=== PATIENT | male | born 1940 | race Caucasian/White ===

== ENCOUNTER 2019-06-08 09:04 | Inpatient (IN) ==
[2019-06-08] MEDS ORDERED: ALBUTEROL/IPRATROPIUM 3 ML NEB RESP TX PRN (11:28)
[2019-06-08] MEDS ORDERED: DEXTROSE 50% 25 GM/50 ML VIAL IV PRN (11:30)
[2019-06-08] MEDS ORDERED: GLUCAGON 1 MG VIAL IM PRN (11:30)
[2019-06-08 11:48] LABS: ABG Base Excess -1.3 MMOL/L (-2.5-2.5); ABG HCO3 23.3 MMOL/L (20-26); ABG Oxygen Saturation 98.5 % (95-100); ABG PCO2 45.2 MM HG (35-48); ABG PH 7.343 (7.35-7.45); ABG TCO2 22.6 MMOL/L (23-27); Allen Test Positive; Pt O2 Delivery Device Ventilator
[2019-06-08] MEDS: PROPOFOL 1,000 MG/100 ML BOTTLE IV SCH (11:51)
[2019-06-08] MEDS: SODIUM CHLORIDE 0.9% 1,000 ML IV SCH ×2 (11:52→22:53)
[2019-06-08] MEDS: ALBUTEROL/IPRATROPIUM 3 ML NEB RESP TX SCH ×2 (13:20→19:30)
[2019-06-08] MEDS: INSULIN GLARGINE 100 UNIT/ML SUBCUT SCH (13:29)
[2019-06-08] MEDS: methylPREDNISolone SOD SUC 40 MG/1 ML VIAL IV SCH ×2 (13:29→23:18)
[2019-06-08] MEDS: MEROPENEM 500 MG in SODIUM CHLORIDE 0.9% 100 ML IV SCH ×2 (13:30→20:23)
[2019-06-08] MEDS: ENOXAPARIN 30 MG/0.3 ML SYRINGE SUBCUT SCH (13:30)
[2019-06-08] MEDS ORDERED: INSULIN LISPRO 100 UNIT/ML SUBCUT SCH (14:00)
[2019-06-08 15:27] LABS: Troponin I 0.067 NG/ML (0.00-0.045)
[2019-06-08] MEDS: INSULIN LISPRO 100 UNIT/ML SUBCUT SCH ×3 (16:55→21:23)
[2019-06-08 18:28] LABS: Troponin I 0.071 NG/ML (0.00-0.045)
[2019-06-08 20:55] LABS: Troponin I 0.063 NG/ML (0.00-0.045)
[2019-06-08] MEDS: carvediloL 3.125 MG TABLET PER TUBE SCH (21:30)
[2019-06-08] MEDS: ATORVASTATIN 40 MG TABLET PER TUBE SCH (21:31)
[2019-06-08] MEDS: CILOSTAZOL 50 MG TABLET PER TUBE SCH (21:31)
[2019-06-09] MEDS: ALBUTEROL/IPRATROPIUM 3 ML NEB RESP TX SCH ×4 (00:04→19:33)
[2019-06-09] MEDS: INSULIN LISPRO 100 UNIT/ML SUBCUT SCH ×7 (01:29→20:13)
[2019-06-09] MEDS: PROPOFOL 1,000 MG/100 ML BOTTLE IV SCH ×3 (02:19→21:48)
[2019-06-09] MEDS: MEROPENEM 500 MG in SODIUM CHLORIDE 0.9% 100 ML IV SCH ×3 (04:32→21:50)
[2019-06-09 04:58] LABS: Allen Test Positive; Pt O2 Delivery Device Ventilator
[2019-06-09 04:59] LABS: ABG Base Excess -1.5 MMOL/L (-2.5-2.5); ABG HCO3 23.1 MMOL/L (20-26); ABG Oxygen Saturation 98.2 % (95-100); ABG PCO2 27.2 MM HG (35-48); ABG PH 7.493 (7.35-7.45); ABG TCO2 19.2 MMOL/L (23-27)
[2019-06-09 05:42] LABS: Basophils % 0.1 % (0.0-0.8); Hematocrit 29.3 VOL% (42.0-52.0); Hemoglobin 9.1 GM/DL (14.0-18.0); Immature Granulocytes % 0.4 %; Immature Granulocytes Absolute 0.03 #; Lymphocytes # 0.5 10*3/uL (1.4-4.0); Lymphocytes % 6.5 % (21.2-54.2); Mean Corpuscular HGB Conc 31.1 GM/DL (32-36); Mean Platelet Volume 11.9 FL (9.6-12.0); Monocytes % 3.6 % (1.7-12.7); Neutrophils % 89.4 % (38.7-73.9); Platelet Count 253 T/CUMM (130-400); Red Blood Count 3.33 MC/CUMM (3.8-5.5); Red Cell Distribution Width 15.8 % (9.3-17.3)
[2019-06-09 05:52] LABS: Calcium 9.2 MG/DL (8.5-10.1); Osmolality,Calculated 303.1 MOS/KG (273-304)
[2019-06-09] MEDS: CLOPIDOGREL 75 MG TABLET PER TUBE SCH (09:40)
[2019-06-09] MEDS: carvediloL 3.125 MG TABLET PER TUBE SCH ×2 (09:40→21:08)
[2019-06-09] MEDS: INSULIN GLARGINE 100 UNIT/ML SUBCUT SCH (09:40)
[2019-06-09] MEDS: FUROSEMIDE 40 MG/4 ML VIAL IV SCH (09:41)
[2019-06-09] MEDS: CILOSTAZOL 50 MG TABLET PER TUBE SCH ×2 (09:49→21:08)
[2019-06-09] MEDS ORDERED: INFLUENZA VIRUS VACCINE 0.5 ML SYRINGE IM ONE (11:40)
[2019-06-09] MEDS: methylPREDNISolone SOD SUC 40 MG/1 ML VIAL IV SCH ×2 (12:09→23:51)
[2019-06-09] MEDS: ENOXAPARIN 30 MG/0.3 ML SYRINGE SUBCUT SCH (12:12)
[2019-06-09] MEDS: SODIUM CHLORIDE 0.9% 1,000 ML IV SCH (15:09)
[2019-06-09] MEDS: ATORVASTATIN 40 MG TABLET PER TUBE SCH (21:08)
[2019-06-10] MEDS: INSULIN LISPRO 100 UNIT/ML SUBCUT SCH ×5 (00:03→16:18)
[2019-06-10] MEDS: ALBUTEROL/IPRATROPIUM 3 ML NEB RESP TX SCH ×4 (02:35→18:58)
[2019-06-10 04:15] LABS: ABG HCO3 23.6 MMOL/L (20-26); ABG Oxygen Saturation 97.1 % (95-100); ABG PCO2 33.2 MM HG (35-48); ABG PH 7.441 (7.35-7.45); ABG PO2 88.3 MM HG (80-95); ABG TCO2 20.7 MMOL/L (23-27); Allen Test Positive; Pt O2 Delivery Device Ventilator
[2019-06-10 04:19] LABS: Basophils % 0.1 % (0.0-0.8); Hematocrit 30.3 VOL% (42.0-52.0); Hemoglobin 9.1 GM/DL (14.0-18.0); Immature Granulocytes % 0.5 %; Immature Granulocytes Absolute 0.05 #; Lymphocytes # 0.5 10*3/uL (1.4-4.0); Lymphocytes % 4.9 % (21.2-54.2); Mean Corpuscular Volume 89.9 FL (87-102); Mean Platelet Volume 11.8 FL (9.6-12.0); Neutrophils % 90.5 % (38.7-73.9); Platelet Count 283 T/CUMM (130-400); Red Blood Count 3.37 MC/CUMM (3.8-5.5); Red Cell Distribution Width 15.8 % (9.3-17.3); White Blood Count 9.9 T/CUMM (4-12)
[2019-06-10 04:26] LABS: Calcium 8.8 MG/DL (8.5-10.1); Osmolality,Calculated 294.8 MOS/KG (273-304)
[2019-06-10 04:45] LABS: Eosinophils 1 % (0-10); Hypochromasia 1+; Lymphocytes 1 % (20-55); Platelet Estimate Adequate; Segmented Neutrophils 94 % (50-85); Total Cells Counted 100
[2019-06-10] MEDS: MEROPENEM 500 MG in SODIUM CHLORIDE 0.9% 100 ML IV SCH ×3 (04:52→20:52)
[2019-06-10] MEDS: PROPOFOL 1,000 MG/100 ML BOTTLE IV SCH ×2 (06:36→16:44)
[2019-06-10] MEDS: SODIUM CHLORIDE 0.9% 1,000 ML IV SCH (06:36)
[2019-06-10] MEDS ORDERED: MAGNESIUM SULF RIDER 2 GM in PREMIX 1 EACH IV ONE (08:08)
[2019-06-10] MEDS: INSULIN GLARGINE 100 UNIT/ML SUBCUT SCH (09:07)
[2019-06-10] MEDS: carvediloL 3.125 MG TABLET PER TUBE SCH ×2 (09:09→20:52)
[2019-06-10] MEDS: CILOSTAZOL 50 MG TABLET PER TUBE SCH ×2 (09:09→20:52)
[2019-06-10] MEDS: CLOPIDOGREL 75 MG TABLET PER TUBE SCH (09:09)
[2019-06-10] MEDS: FUROSEMIDE 40 MG/4 ML VIAL IV SCH (09:12)
[2019-06-10] MEDS ORDERED: DEXTROSE 50% 25 GM/50 ML VIAL IV PRN (10:29)
[2019-06-10] MEDS ORDERED: GLUCAGON 1 MG VIAL IM PRN (10:29)
[2019-06-10] MEDS: methylPREDNISolone SOD SUC 40 MG/1 ML VIAL IV SCH ×2 (12:16→23:43)
[2019-06-10] MEDS: ENOXAPARIN 40 MG/0.4 ML SYRINGE SUBCUT SCH (12:16)
[2019-06-10] MEDS: ATORVASTATIN 40 MG TABLET PER TUBE SCH (20:52)
[2019-06-10] MEDS ORDERED: SODIUM CHLORIDE 0.9% 250 ML IV ONE (23:30)
[2019-06-10] MEDS ORDERED: NOREPINEPHRINE 8 MG in SODIUM CHLORIDE 0.9% 242 ML IV PRN (23:30)
[2019-06-11] MEDS: ALBUTEROL/IPRATROPIUM 3 ML NEB RESP TX SCH ×4 (00:33→19:08)
[2019-06-11 03:18] LABS: ABG Base Excess -0.9 MMOL/L (-2.5-2.5); ABG HCO3 23.6 MMOL/L (20-26); ABG Oxygen Saturation 95.8 % (95-100); ABG PCO2 33.3 MM HG (35-48); ABG PH 7.441 (7.35-7.45); ABG PO2 79.6 MM HG (80-95); ABG TCO2 20.5 MMOL/L (23-27); Allen Test Positive; Pt O2 Delivery Device Ventilator
[2019-06-11 04:25] LABS: Basophils % 0.1 % (0.0-0.8); Hematocrit 28.8 VOL% (42.0-52.0); Immature Granulocytes % 0.6 %; Immature Granulocytes Absolute 0.06 #; Lymphocytes # 0.4 10*3/uL (1.4-4.0); Lymphocytes % 3.9 % (21.2-54.2); Mean Corpuscular HGB Conc 31.3 GM/DL (32-36); Mean Corpuscular Volume 87.8 FL (87-102); Mean Platelet Volume 11.8 FL (9.6-12.0); Monocytes % 5.6 % (1.7-12.7); Neutrophils % 89.8 % (38.7-73.9); Platelet Count 265 T/CUMM (130-400); Red Blood Count 3.28 MC/CUMM (3.8-5.5); Red Cell Distribution Width 15.9 % (9.3-17.3)
[2019-06-11] MEDS: MEROPENEM 500 MG in SODIUM CHLORIDE 0.9% 100 ML IV SCH ×3 (04:39→20:14)
[2019-06-11] MEDS: PROPOFOL 1,000 MG/100 ML BOTTLE IV SCH ×2 (04:39→12:30)
[2019-06-11 04:47] LABS: Hypochromasia 1+; Lymphocytes 3 % (20-55); Ovalocytes Slight; Platelet Estimate Adequate; Segmented Neutrophils 96 % (50-85); Total Cells Counted 100
[2019-06-11 04:48] LABS: Calcium 8.8 MG/DL (8.5-10.1); Osmolality,Calculated 307.3 MOS/KG (273-304)
[2019-06-11] MEDS: INSULIN LISPRO 100 UNIT/ML SUBCUT SCH ×4 (05:24→18:06)
[2019-06-11] MEDS: POTASSIUM CHLORIDE 20 MEQ/15 ML UDCUP PER TUBE PRN ×3 (05:41→09:40)
[2019-06-11] MEDS: CILOSTAZOL 50 MG TABLET PER TUBE SCH ×2 (09:40→20:14)
[2019-06-11] MEDS: CLOPIDOGREL 75 MG TABLET PER TUBE SCH (09:40)
[2019-06-11] MEDS: carvediloL 3.125 MG TABLET PER TUBE SCH ×2 (09:40→20:14)
[2019-06-11] MEDS: FUROSEMIDE 40 MG/4 ML VIAL IV SCH (09:41)
[2019-06-11] MEDS: INSULIN GLARGINE 100 UNIT/ML SUBCUT SCH (09:41)
[2019-06-11] MEDS ORDERED: FUROSEMIDE 40 MG/4 ML VIAL IV ONE (11:34)
[2019-06-11] MEDS: methylPREDNISolone SOD SUC 40 MG/1 ML VIAL IV SCH (11:52)
[2019-06-11] MEDS: ENOXAPARIN 40 MG/0.4 ML SYRINGE SUBCUT SCH (11:55)
[2019-06-11] MEDS: ATORVASTATIN 40 MG TABLET PER TUBE SCH (20:14)
[2019-06-12] MEDS: INSULIN LISPRO 100 UNIT/ML SUBCUT SCH ×5 (00:47→23:46)
[2019-06-12] MEDS: methylPREDNISolone SOD SUC 40 MG/1 ML VIAL IV SCH ×3 (00:47→22:42)
[2019-06-12] MEDS: ALBUTEROL/IPRATROPIUM 3 ML NEB RESP TX SCH ×4 (01:59→18:35)
[2019-06-12 04:01] LABS: ABG Base Excess 0.6 MMOL/L (-2.5-2.5); ABG HCO3 24.7 MMOL/L (20-26); ABG Oxygen Saturation 84.9 % (95-100); ABG PCO2 36.9 MM HG (35-48); ABG PH 7.432 (7.35-7.45); ABG PO2 52.6 MM HG (80-95); ABG TCO2 22.5 MMOL/L (23-27); Allen Test Positive
[2019-06-12 04:22] LABS: Basophils % 0.1 % (0.0-0.8); Hemoglobin 9.4 GM/DL (14.0-18.0); Immature Granulocytes % 0.4 %; Immature Granulocytes Absolute 0.04 #; Lymphocytes # 0.5 10*3/uL (1.4-4.0); Lymphocytes % 5.4 % (21.2-54.2); Mean Corpuscular HGB Conc 30.3 GM/DL (32-36); Mean Corpuscular Volume 88.1 FL (87-102); Mean Platelet Volume 11.2 FL (9.6-12.0); Monocytes % 4.6 % (1.7-12.7); Neutrophils % 89.5 % (38.7-73.9); Platelet Count 285 T/CUMM (130-400); Red Blood Count 3.52 MC/CUMM (3.8-5.5); Red Cell Distribution Width 15.7 % (9.3-17.3)
[2019-06-12 04:44] LABS: Calcium 8.6 MG/DL (8.5-10.1); Osmolality,Calculated 301.7 MOS/KG (273-304)
[2019-06-12] MEDS: MEROPENEM 500 MG in SODIUM CHLORIDE 0.9% 100 ML IV SCH (05:00)
[2019-06-12] MEDS ORDERED: DEXTROSE 50% 25 GM/50 ML VIAL IV PRN (08:55)
[2019-06-12] MEDS: INSULIN GLARGINE 100 UNIT/ML SUBCUT SCH (09:49)
[2019-06-12] MEDS: carvediloL 3.125 MG TABLET PER TUBE SCH ×2 (09:49→20:37)
[2019-06-12] MEDS: FUROSEMIDE 40 MG/4 ML VIAL IV SCH (09:49)
[2019-06-12] MEDS: CILOSTAZOL 50 MG TABLET PER TUBE SCH ×2 (09:50→20:36)
[2019-06-12] MEDS: CLOPIDOGREL 75 MG TABLET PER TUBE SCH (09:50)
[2019-06-12] MEDS: ENOXAPARIN 40 MG/0.4 ML SYRINGE SUBCUT SCH (12:34)
[2019-06-12] MEDS: ATORVASTATIN 40 MG TABLET PER TUBE SCH (20:36)
[2019-06-12] MEDS: cephALEXin 500 MG CAPSULE PO SCH (20:37)
[2019-06-12] MEDS: MORPHINE 4 MG/1 ML VIAL IV PRN (20:42)
[2019-06-13 05:20] LABS: Hematocrit 30.8 VOL% (42.0-52.0); Hemoglobin 9.4 GM/DL (14.0-18.0); Immature Granulocytes % 0.6 %; Immature Granulocytes Absolute 0.05 #; Lymphocytes # 0.5 10*3/uL (1.4-4.0); Mean Corpuscular HGB Conc 30.5 GM/DL (32-36); Mean Corpuscular Volume 88.5 FL (87-102); Monocytes % 4.4 % (1.7-12.7); Platelet Count 284 T/CUMM (130-400); Red Blood Count 3.48 MC/CUMM (3.8-5.5); Red Cell Distribution Width 15.4 % (9.3-17.3)
[2019-06-13 05:29] LABS: Calcium 8.7 MG/DL (8.5-10.1); Osmolality,Calculated 301.8 MOS/KG (273-304)
[2019-06-13] MEDS: INSULIN LISPRO 100 UNIT/ML SUBCUT SCH ×3 (05:42→18:08)
[2019-06-13] MEDS: ALBUTEROL/IPRATROPIUM 3 ML NEB RESP TX SCH ×4 (07:57→19:18)
[2019-06-13] MEDS: INSULIN GLARGINE 100 UNIT/ML SUBCUT SCH (08:22)
[2019-06-13] MEDS: CILOSTAZOL 50 MG TABLET PER TUBE SCH ×2 (08:22→20:09)
[2019-06-13] MEDS: carvediloL 3.125 MG TABLET PER TUBE SCH ×2 (08:23→20:10)
[2019-06-13] MEDS: CLOPIDOGREL 75 MG TABLET PER TUBE SCH (08:23)
[2019-06-13] MEDS: FUROSEMIDE 40 MG/4 ML VIAL IV SCH (08:23)
[2019-06-13] MEDS: cephALEXin 500 MG CAPSULE PO SCH ×2 (08:38→20:09)
[2019-06-13] MEDS ORDERED: NICOTINE 21 MG/24 HR PATCH TRANSDERM PRN (10:42)
[2019-06-13] MEDS ORDERED: ENOXAPARIN 30 MG/0.3 ML SYRINGE SUBCUT SCH (11:00)
[2019-06-13] MEDS: methylPREDNISolone SOD SUC 40 MG/1 ML VIAL IV SCH ×2 (11:43→22:44)
[2019-06-13] MEDS: MORPHINE 4 MG/1 ML VIAL IV PRN (20:08)
[2019-06-13] MEDS: ATORVASTATIN 40 MG TABLET PER TUBE SCH (20:10)
[2019-06-14] MEDS: ALBUTEROL/IPRATROPIUM 3 ML NEB RESP TX SCH ×2 (00:04→09:05)
[2019-06-14] MEDS: INSULIN LISPRO 100 UNIT/ML SUBCUT SCH ×2 (00:11→06:37)
[2019-06-14 06:26] LABS: Basophils % 0.1 % (0.0-0.8); Hematocrit 33.9 VOL% (42.0-52.0); Hemoglobin 10.4 GM/DL (14.0-18.0); Immature Granulocytes % 0.6 %; Immature Granulocytes Absolute 0.05 #; Lymphocytes # 0.4 10*3/uL (1.4-4.0); Lymphocytes % 5.2 % (21.2-54.2); Mean Corpuscular HGB Conc 30.7 GM/DL (32-36); Mean Corpuscular Volume 87.1 FL (87-102); Mean Platelet Volume 12.1 FL (9.6-12.0); Neutrophils % 90.1 % (38.7-73.9); Platelet Count 291 T/CUMM (130-400); Red Blood Count 3.89 MC/CUMM (3.8-5.5); Red Cell Distribution Width 15.3 % (9.3-17.3)
[2019-06-14 06:49] LABS: Calcium 9.4 MG/DL (8.5-10.1); Osmolality,Calculated 307.6 MOS/KG (273-304)
[2019-06-14 08:22] VITALS: BP 144/68
[2019-06-14] MEDS: cephALEXin 500 MG CAPSULE PO SCH (09:12)
[2019-06-14] MEDS: CLOPIDOGREL 75 MG TABLET PER TUBE SCH (09:12)
[2019-06-14] MEDS: CILOSTAZOL 50 MG TABLET PER TUBE SCH (09:12)
[2019-06-14] MEDS: carvediloL 3.125 MG TABLET PER TUBE SCH (09:12)
[2019-06-14] MEDS: INSULIN GLARGINE 100 UNIT/ML SUBCUT SCH (09:13)
[2019-06-14] MEDS: FUROSEMIDE 40 MG/4 ML VIAL IV SCH (09:14)
== END 2019-06-14 11:02 | disposition home health service (06) | DRG 208 ==
LOC: N.ICU 10:13 → SUATTDRO 10:13 → N.5E 06-12 16:25
PROVIDERS: ADMIT Internal Medicine; ATTEND Internal Medicine

== ENCOUNTER 2019-06-15 12:40 | Inpatient (IN) ==
[2019-06-15 14:06] LABS: Basophils % 0.1 % (0.0-0.8); Eosinophils # 0.2 10*3/uL (0.0-0.87); Eosinophils % 1.9 % (0.00-10.9); Hematocrit 33.3 VOL% (42.0-52.0); Hemoglobin 10.2 GM/DL (14.0-18.0); Immature Granulocytes % 0.9 %; Immature Granulocytes Absolute 0.09 #; Lymphocytes # 0.6 10*3/uL (1.4-4.0); Lymphocytes % 6.4 % (21.2-54.2); Mean Corpuscular HGB Conc 30.6 GM/DL (32-36); Mean Corpuscular Volume 87.6 FL (87-102); Mean Platelet Volume 12.2 FL (9.6-12.0); Monocytes % 7.4 % (1.7-12.7); Neutrophils % 83.3 % (38.7-73.9); Platelet Count 273 T/CUMM (130-400); Red Cell Distribution Width 15.5 % (9.3-17.3); White Blood Count 9.6 T/CUMM (4-12)
[2019-06-15 14:12] LABS: INR 1.1; PT Patient Result 11.4 SECS (9.6-12.2)
[2019-06-15] MEDS ORDERED: FUROSEMIDE 100 MG/10 ML VIAL IV STA (14:17)
[2019-06-15] MEDS ORDERED: FUROSEMIDE 100 MG/10 ML VIAL ONE (14:17)
[2019-06-15 14:20] LABS: Albumin 2.9 G/DL (3.4-5.0); Bilirubin,Total 0.5 MG/DL (0.2-1.0); Calcium 8.9 MG/DL (8.5-10.1); Osmolality,Calculated 309.4 MOS/KG (273-304)
[2019-06-15] MEDS ORDERED: MAGNESIUM SULF RIDER 4 GM in PREMIX 1 EACH IV PRN (14:41)
[2019-06-15] MEDS ORDERED: MAGNESIUM SULF RIDER 2 GM in PREMIX 1 EACH IV PRN (14:41)
[2019-06-15] MEDS ORDERED: NITROGLYCERIN SL 0.4 MG TABLET SL PRN (14:44)
[2019-06-15] MEDS ORDERED: NICOTINE 21 MG/24 HR PATCH TRANSDERM PRN (14:44)
[2019-06-15] MEDS ORDERED: HEPARIN 5,000 UNIT/1 ML VIAL SUBCUT SCH (16:30)
[2019-06-15] MEDS: FUROSEMIDE 40 MG/4 ML VIAL IV SCH (17:18)
[2019-06-15] MEDS: ALBUTEROL/IPRATROPIUM 3 ML NEB RESP TX SCH (19:56)
[2019-06-15 20:26] LABS: CKMB % 6.6 %
[2019-06-15 20:29] LABS: Troponin I 3.79 NG/ML (0.00-0.045)
[2019-06-15] MEDS: CILOSTAZOL 50 MG TABLET PO SCH (20:51)
[2019-06-15] MEDS: glipiZIDE 10 MG TABLET PO SCH (20:51)
[2019-06-15] MEDS: carvediloL 3.125 MG TABLET PO SCH (20:51)
[2019-06-15] MEDS: ENOXAPARIN 80 MG/0.8 ML SYRINGE SUBCUT SCH (20:51)
[2019-06-15] MEDS: ATORVASTATIN 80 MG TABLET PO SCH (20:51)
[2019-06-15] MEDS: NITROGLYCERIN 2% OINT 1 INCH/GM PACK TOP SCH (20:52)
[2019-06-15] MEDS: methylPREDNISolone SOD SUC 40 MG/1 ML VIAL IV SCH (22:30)
[2019-06-16] MEDS: ALBUTEROL/IPRATROPIUM 3 ML NEB RESP TX SCH ×4 (00:18→20:36)
[2019-06-16] MEDS: methylPREDNISolone SOD SUC 40 MG/1 ML VIAL IV SCH ×3 (06:00→21:18)
[2019-06-16] MEDS ORDERED: BUPIVACAINE MPF 0.25% 30 ML VIAL ONE (07:48)
[2019-06-16] MEDS ORDERED: LIDOCAINE 1%/EPI INJ 20 ML VIAL ONE (07:48)
[2019-06-16] MEDS: ENOXAPARIN 80 MG/0.8 ML SYRINGE SUBCUT SCH ×2 (08:26→21:17)
[2019-06-16] MEDS: NITROGLYCERIN 2% OINT 1 INCH/GM PACK TOP SCH (08:26)
[2019-06-16] MEDS: FUROSEMIDE 40 MG/4 ML VIAL IV SCH (08:27)
[2019-06-16] MEDS: ASPIRIN CHEW 81 MG TABLET PO SCH (08:28)
[2019-06-16] MEDS: FENOFIBRATE 145 MG TABLET PO SCH (08:28)
[2019-06-16] MEDS: glipiZIDE 10 MG TABLET PO SCH ×2 (08:28→21:17)
[2019-06-16] MEDS: CLOPIDOGREL 75 MG TABLET PO SCH (08:28)
[2019-06-16] MEDS: CILOSTAZOL 50 MG TABLET PO SCH ×2 (08:28→21:17)
[2019-06-16] MEDS: PANTOPRAZOLE 40 MG TABLET PO SCH (08:28)
[2019-06-16] MEDS: carvediloL 3.125 MG TABLET PO SCH (08:28)
[2019-06-16] MEDS ORDERED: LISINOPRIL 2.5 MG TABLET PO SCH (09:00)
[2019-06-16 10:44] LABS: Basophils % 0.1 % (0.0-0.8); Eosinophils # 0.2 10*3/uL (0.0-0.87); Eosinophils % 2.1 % (0.00-10.9); Hematocrit 30.6 VOL% (42.0-52.0); Hemoglobin 9.5 GM/DL (14.0-18.0); Immature Granulocytes % 0.8 %; Immature Granulocytes Absolute 0.06 #; Lymphocytes # 0.6 10*3/uL (1.4-4.0); Lymphocytes % 7.5 % (21.2-54.2); Mean Corpuscular Volume 87.9 FL (87-102); Mean Platelet Volume 12.4 FL (9.6-12.0); Neutrophils % 86.5 % (38.7-73.9); Platelet Count 248 T/CUMM (130-400); Red Blood Count 3.48 MC/CUMM (3.8-5.5); Red Cell Distribution Width 15.6 % (9.3-17.3); White Blood Count 7.6 T/CUMM (4-12)
[2019-06-16 10:53] LABS: Calcium 8.7 MG/DL (8.5-10.1); Osmolality,Calculated 304.8 MOS/KG (273-304)
[2019-06-16] MEDS ORDERED: DIAZEPAM 5 MG TABLET PO ONE (10:54)
[2019-06-16] MEDS ORDERED: diphenhydrAMINE CAP 25 MG CAPSULE PO ONE (10:54)
[2019-06-16] MEDS ORDERED: LIDOCAINE 1% 20 ML VIAL ONE (11:01)
[2019-06-16] MEDS: SODIUM CHLORIDE 0.45% 1,000 ML IV SCH (11:12)
[2019-06-16] MEDS ORDERED: MIDAZOLAM 2 MG/2 ML VIAL ONE (11:22)
[2019-06-16] MEDS ORDERED: fentaNYL 100 MCG/2 ML VIAL ONE (11:22)
[2019-06-16] MEDS ORDERED: GLUCAGON 1 MG VIAL IM PRN (11:45)
[2019-06-16] MEDS ORDERED: DEXTROSE 10% 250 ML BAG IV PRN (11:45)
[2019-06-16] MEDS: INSULIN REGULAR 100 UNIT/ML SUBCUT SCH ×2 (16:13→21:16)
[2019-06-16] MEDS: carvediloL 6.25 MG TABLET PO SCH (21:17)
[2019-06-16] MEDS: ATORVASTATIN 80 MG TABLET PO SCH (21:17)
[2019-06-17] MEDS: ALBUTEROL/IPRATROPIUM 3 ML NEB RESP TX SCH ×4 (00:52→20:40)
[2019-06-17 05:10] LABS: Basophils % 0.1 % (0.0-0.8); Hematocrit 28.7 VOL% (42.0-52.0); Hemoglobin 9.3 GM/DL (14.0-18.0); Immature Granulocytes % 0.7 %; Immature Granulocytes Absolute 0.06 #; Lymphocytes # 0.5 10*3/uL (1.4-4.0); Lymphocytes % 5.2 % (21.2-54.2); Mean Corpuscular HGB Conc 32.4 GM/DL (32-36); Mean Corpuscular Volume 85.7 FL (87-102); Mean Platelet Volume 12.3 FL (9.6-12.0); Monocytes % 3.8 % (1.7-12.7); Neutrophils % 90.2 % (38.7-73.9); Platelet Count 219 T/CUMM (130-400); Red Blood Count 3.35 MC/CUMM (3.8-5.5); Red Cell Distribution Width 15.3 % (9.3-17.3); White Blood Count 8.9 T/CUMM (4-12)
[2019-06-17 05:25] LABS: Alanine Aminotransferase 70 U/L (16-61); Albumin 2.7 G/DL (3.4-5.0); Alkaline Phosphatase 76 U/L (45-117); Aspartate Amino Transferase 23 U/L (0-37); Bilirubin,Total < 0.39 MG/DL (0.2-1.0); Total Protein 5.8 G/DL (6.4-8.3)
[2019-06-17 05:26] LABS: Risk Ratio 2.33; VLDL CHOLESTEROL 17.2 MG/DL
[2019-06-17 05:27] LABS: Bilirubin,Indirect 0.2 MG/DL (0.0-1.0)
[2019-06-17 05:29] LABS: Calcium 8.9 MG/DL (8.5-10.1); Osmolality,Calculated 309.1 MOS/KG (273-304)
[2019-06-17] MEDS: methylPREDNISolone SOD SUC 40 MG/1 ML VIAL IV SCH (06:08)
[2019-06-17] MEDS: SODIUM CHLORIDE 0.45% 1,000 ML IV SCH ×3 (07:29→18:34)
[2019-06-17] MEDS: FENOFIBRATE 145 MG TABLET PO SCH (09:49)
[2019-06-17] MEDS: ISOSORBIDE MONONITRATE 30 MG TABLET PO SCH (09:49)
[2019-06-17] MEDS: CLOPIDOGREL 75 MG TABLET PO SCH (09:49)
[2019-06-17] MEDS: PANTOPRAZOLE 40 MG TABLET PO SCH (09:49)
[2019-06-17] MEDS: ASPIRIN CHEW 81 MG TABLET PO SCH (09:50)
[2019-06-17] MEDS: ENOXAPARIN 80 MG/0.8 ML SYRINGE SUBCUT SCH ×2 (09:50→21:09)
[2019-06-17] MEDS: CILOSTAZOL 50 MG TABLET PO SCH ×2 (09:50→21:08)
[2019-06-17] MEDS: glipiZIDE 10 MG TABLET PO SCH ×2 (09:50→16:16)
[2019-06-17] MEDS: carvediloL 6.25 MG TABLET PO SCH ×2 (09:50→16:16)
[2019-06-17] MEDS: INSULIN REGULAR 100 UNIT/ML SUBCUT SCH ×4 (09:51→21:09)
[2019-06-17] MEDS: ATORVASTATIN 80 MG TABLET PO SCH (21:08)
[2019-06-17] MEDS: POTASSIUM CHLORIDE 10 MEQ TABLET PO SCH (21:09)
[2019-06-18] MEDS: ALBUTEROL/IPRATROPIUM 3 ML NEB RESP TX SCH ×2 (01:30→07:40)
[2019-06-18] MEDS: dilTIAZem Drip 125 MG/125 ML PREMIX IV SCH (02:14)
[2019-06-18 04:39] LABS: Basophils % 0.1 % (0.0-0.8); Eosinophils % 0.2 % (0.00-10.9); Hemoglobin 9.4 GM/DL (14.0-18.0); Immature Granulocytes % 0.8 %; Lymphocytes # 0.7 10*3/uL (1.4-4.0); Mean Corpuscular HGB Conc 31.3 GM/DL (32-36); Mean Platelet Volume 12.9 FL (9.6-12.0); Neutrophils % 85.9 % (38.7-73.9); Platelet Count 222 T/CUMM (130-400); Red Blood Count 3.49 MC/CUMM (3.8-5.5); Red Cell Distribution Width 15.4 % (9.3-17.3); White Blood Count 13.3 T/CUMM (4-12)
[2019-06-18 05:24] LABS: Calcium 8.5 MG/DL (8.5-10.1); Osmolality,Calculated 298.4 MOS/KG (273-304)
[2019-06-18] MEDS: ENOXAPARIN 80 MG/0.8 ML SYRINGE SUBCUT SCH ×2 (09:13→21:23)
[2019-06-18] MEDS: glipiZIDE 10 MG TABLET PO SCH ×2 (09:14→16:04)
[2019-06-18] MEDS: ASPIRIN CHEW 81 MG TABLET PO SCH (09:14)
[2019-06-18] MEDS: FENOFIBRATE 145 MG TABLET PO SCH (09:14)
[2019-06-18] MEDS: CILOSTAZOL 50 MG TABLET PO SCH ×2 (09:14→21:23)
[2019-06-18] MEDS: POTASSIUM CHLORIDE 10 MEQ TABLET PO SCH ×2 (09:14→21:23)
[2019-06-18] MEDS: carvediloL 6.25 MG TABLET PO SCH ×2 (09:14→16:04)
[2019-06-18] MEDS: predniSONE 20 MG TABLET PO SCH (09:14)
[2019-06-18] MEDS: PANTOPRAZOLE 40 MG TABLET PO SCH (09:15)
[2019-06-18] MEDS: ISOSORBIDE MONONITRATE 30 MG TABLET PO SCH (09:15)
[2019-06-18] MEDS: INSULIN REGULAR 100 UNIT/ML SUBCUT SCH ×4 (09:15→21:29)
[2019-06-18] MEDS: POTASSIUM CHLORIDE 20 MEQ TABLET PO PRN ×2 (09:15→11:42)
[2019-06-18] MEDS: CLOPIDOGREL 75 MG TABLET PO SCH (09:15)
[2019-06-18] MEDS ORDERED: SODIUM PHOSPHATE INJ 30 MMOL in SODIUM CHLORIDE 0.9% 250 ML IV ONE (11:00)
[2019-06-18] MEDS ORDERED: POTASSIUM BICARB EFFERVESCENT 25 MEQ TABLET PO SCH ×2 (13:00)
[2019-06-18] MEDS: SODIUM CHLORIDE 3% 4 ML NEB RESP TX SCH ×2 (13:11→20:00)
[2019-06-18] MEDS ORDERED: AMIODARONE 450 MG/9 ML VIAL IV ONE (13:38)
[2019-06-18] MEDS ORDERED: AMIODARONE 150 MG/3 ML VIAL ONE (13:38)
[2019-06-18] MEDS ORDERED: AMIODARONE INJ 150 MG in DEXTROSE 5% 100 ML IV ONE (13:42)
[2019-06-18] MEDS ORDERED: AMIODARONE INJ 450 MG in DEXTROSE 5% 241 ML IV SCH (14:00)
[2019-06-18] MEDS ORDERED: SODIUM CHLORIDE 0.9% 1,000 ML IV SCH (14:00)
[2019-06-18] MEDS: IPRATROPIUM 500 MCG/2.5 ML NEB RESP TX SCH (15:34)
[2019-06-18] MEDS: LEVALBUTEROL 0.63 MG/3 ML NEB RESP TX SCH (15:34)
[2019-06-18] MEDS: ATORVASTATIN 80 MG TABLET PO SCH (21:23)
[2019-06-18] MEDS: AMIODARONE INJ 450 MG in DEXTROSE 5% 241 ML IV SCH (21:24)
[2019-06-19] MEDS: IPRATROPIUM 500 MCG/2.5 ML NEB RESP TX SCH ×4 (00:20→23:40)
[2019-06-19] MEDS: LEVALBUTEROL 0.63 MG/3 ML NEB RESP TX SCH ×4 (00:20→23:40)
[2019-06-19 04:57] LABS: Basophils % 0.1 % (0.0-0.8); Hematocrit 27.6 VOL% (42.0-52.0); Hemoglobin 8.4 GM/DL (14.0-18.0); Immature Granulocytes % 0.6 %; Immature Granulocytes Absolute 0.07 #; Lymphocytes # 0.5 10*3/uL (1.4-4.0); Lymphocytes % 4.2 % (21.2-54.2); Mean Corpuscular HGB Conc 30.4 GM/DL (32-36); Mean Corpuscular Volume 87.3 FL (87-102); Mean Platelet Volume 13.1 FL (9.6-12.0); Monocytes % 5.7 % (1.7-12.7); Neutrophils % 89.4 % (38.7-73.9); Platelet Count 200 T/CUMM (130-400); Red Blood Count 3.16 MC/CUMM (3.8-5.5); Red Cell Distribution Width 15.9 % (9.3-17.3); White Blood Count 11.8 T/CUMM (4-12)
[2019-06-19 05:19] LABS: Hypochromasia 1+; Lymphocytes 6 % (20-55); Platelet Estimate Adequate; Segmented Neutrophils 90 % (50-85); Total Cells Counted 100
[2019-06-19 05:20] LABS: Ovalocytes Slight
[2019-06-19 05:22] LABS: Calcium 8.2 MG/DL (8.5-10.1); Osmolality,Calculated 296.7 MOS/KG (273-304)
[2019-06-19] MEDS: SODIUM CHLORIDE 3% 4 ML NEB RESP TX SCH ×3 (07:30→18:40)
[2019-06-19] MEDS: glipiZIDE 10 MG TABLET PO SCH ×2 (09:11→19:05)
[2019-06-19] MEDS: ISOSORBIDE MONONITRATE 30 MG TABLET PO SCH (09:13)
[2019-06-19] MEDS: POTASSIUM CHLORIDE 10 MEQ TABLET PO SCH ×2 (09:13→21:59)
[2019-06-19] MEDS: carvediloL 6.25 MG TABLET PO SCH ×2 (09:14→19:06)
[2019-06-19] MEDS: PANTOPRAZOLE 40 MG TABLET PO SCH (09:14)
[2019-06-19] MEDS: FENOFIBRATE 145 MG TABLET PO SCH (09:14)
[2019-06-19] MEDS: ASPIRIN CHEW 81 MG TABLET PO SCH (09:14)
[2019-06-19] MEDS: CLOPIDOGREL 75 MG TABLET PO SCH (09:14)
[2019-06-19] MEDS: ENOXAPARIN 80 MG/0.8 ML SYRINGE SUBCUT SCH ×2 (09:14→21:59)
[2019-06-19] MEDS: INSULIN REGULAR 100 UNIT/ML SUBCUT SCH ×4 (09:15→22:03)
[2019-06-19] MEDS: predniSONE 20 MG TABLET PO SCH (09:35)
[2019-06-19] MEDS: CILOSTAZOL 50 MG TABLET PO SCH ×2 (09:35→22:02)
[2019-06-19] MEDS: AMIODARONE INJ 450 MG in DEXTROSE 5% 241 ML IV SCH (13:24)
[2019-06-19] MEDS ORDERED: INSULIN GLARGINE 100 UNIT/ML SUBCUT SCH (21:00)
[2019-06-19] MEDS: ATORVASTATIN 80 MG TABLET PO SCH (21:59)
[2019-06-19] MEDS: AMIODARONE 200 MG TABLET PO SCH (21:59)
[2019-06-19] MEDS: INSULIN GLARGINE 100 UNIT/ML SUBCUT SCH (22:00)
[2019-06-20 05:35] LABS: Calcium 9.2 MG/DL (8.5-10.1); Osmolality,Calculated 300.4 MOS/KG (273-304)
[2019-06-20 06:21] LABS: Basophils % 0.1 % (0.0-0.8); Hematocrit 30.9 VOL% (42.0-52.0); Hemoglobin 9.3 GM/DL (14.0-18.0); Immature Granulocytes % 0.7 %; Lymphocytes # 0.5 10*3/uL (1.4-4.0); Lymphocytes % 3.7 % (21.2-54.2); Mean Corpuscular HGB Conc 30.1 GM/DL (32-36); Mean Corpuscular Volume 90.1 FL (87-102); Mean Platelet Volume 13.5 FL (9.6-12.0); Neutrophils % 91.5 % (38.7-73.9); Platelet Count 180 T/CUMM (130-400); Red Blood Count 3.43 MC/CUMM (3.8-5.5); White Blood Count 13.9 T/CUMM (4-12)
[2019-06-20 06:51] LABS: Burr Cells Slight; Hypochromasia 1+; Lymphocytes 7 % (20-55); Ovalocytes Slight; Platelet Estimate Adequate; Segmented Neutrophils 92 % (50-85); Total Cells Counted 100
[2019-06-20] MEDS: SODIUM CHLORIDE 3% 4 ML NEB RESP TX SCH ×3 (06:56→20:00)
[2019-06-20] MEDS: LEVALBUTEROL 0.63 MG/3 ML NEB RESP TX SCH ×3 (06:56→23:45)
[2019-06-20] MEDS: IPRATROPIUM 500 MCG/2.5 ML NEB RESP TX SCH ×3 (06:56→23:45)
[2019-06-20] MEDS ORDERED: BACITRACIN OINT 0.9 GM PACK TOP PRN (08:27)
[2019-06-20] MEDS: INSULIN REGULAR 100 UNIT/ML SUBCUT SCH ×4 (09:04→20:50)
[2019-06-20] MEDS: predniSONE 20 MG TABLET PO SCH (09:05)
[2019-06-20] MEDS: glipiZIDE 10 MG TABLET PO SCH ×2 (09:05→18:49)
[2019-06-20] MEDS: CILOSTAZOL 50 MG TABLET PO SCH ×2 (09:05→20:47)
[2019-06-20] MEDS: FENOFIBRATE 145 MG TABLET PO SCH (09:07)
[2019-06-20] MEDS: carvediloL 6.25 MG TABLET PO SCH ×2 (09:07→18:49)
[2019-06-20] MEDS: ASPIRIN CHEW 81 MG TABLET PO SCH (09:07)
[2019-06-20] MEDS: AMIODARONE 200 MG TABLET PO SCH ×2 (09:07→20:47)
[2019-06-20] MEDS: CLOPIDOGREL 75 MG TABLET PO SCH (09:07)
[2019-06-20] MEDS: POTASSIUM CHLORIDE 10 MEQ TABLET PO SCH ×2 (09:07→20:48)
[2019-06-20] MEDS: ISOSORBIDE MONONITRATE 30 MG TABLET PO SCH (09:08)
[2019-06-20] MEDS: ACETAMINOPHEN 325 MG TABLET PO PRN ×2 (09:20→20:47)
[2019-06-20] MEDS: ENOXAPARIN 30 MG/0.3 ML SYRINGE SUBCUT SCH (09:21)
[2019-06-20] MEDS: FUROSEMIDE 40 MG/4 ML VIAL IV SCH ×2 (09:21→16:04)
[2019-06-20] MEDS: ATORVASTATIN 80 MG TABLET PO SCH (20:47)
[2019-06-20] MEDS: INSULIN GLARGINE 100 UNIT/ML SUBCUT SCH (20:49)
[2019-06-21 06:06] LABS: Basophils % 0.1 % (0.0-0.8); Hematocrit 28.2 VOL% (42.0-52.0); Hemoglobin 8.9 GM/DL (14.0-18.0); Immature Granulocytes % 0.5 %; Immature Granulocytes Absolute 0.07 #; Lymphocytes # 0.6 10*3/uL (1.4-4.0); Lymphocytes % 4.6 % (21.2-54.2); Mean Corpuscular HGB Conc 31.6 GM/DL (32-36); Mean Corpuscular Volume 86.2 FL (87-102); Mean Platelet Volume 13.1 FL (9.6-12.0); Neutrophils % 88.8 % (38.7-73.9); Platelet Count 211 T/CUMM (130-400); Red Blood Count 3.27 MC/CUMM (3.8-5.5); Red Cell Distribution Width 16.2 % (9.3-17.3); White Blood Count 13.8 T/CUMM (4-12)
[2019-06-21 06:29] LABS: Acanthocytes Few; Burr Cells Slight; Eosinophils 1 % (0-10); Hypochromasia 1+; Lymphocytes 2 % (20-55); Microcytosis 1+; Ovalocytes Few; Segmented Neutrophils 92 % (50-85); Total Cells Counted 100
[2019-06-21 06:30] LABS: Platelet Estimate Normal
[2019-06-21 06:52] LABS: Calcium 9.6 MG/DL (8.5-10.1); Osmolality,Calculated 301.1 MOS/KG (273-304)
[2019-06-21] MEDS: IPRATROPIUM 500 MCG/2.5 ML NEB RESP TX SCH ×2 (08:16→15:47)
[2019-06-21] MEDS: SODIUM CHLORIDE 3% 4 ML NEB RESP TX SCH ×3 (08:17→20:13)
[2019-06-21] MEDS: LEVALBUTEROL 0.63 MG/3 ML NEB RESP TX SCH ×2 (08:17→15:50)
[2019-06-21] MEDS: INSULIN REGULAR 100 UNIT/ML SUBCUT SCH ×4 (08:26→20:56)
[2019-06-21] MEDS: metOLazone 2.5 MG TABLET PO SCH (09:00)
[2019-06-21] MEDS: FUROSEMIDE 40 MG/4 ML VIAL IV SCH ×3 (09:49→16:30)
[2019-06-21] MEDS: POTASSIUM CHLORIDE 20 MEQ TABLET PO PRN (10:03)
[2019-06-21] MEDS: glipiZIDE 10 MG TABLET PO SCH ×3 (10:03→16:34)
[2019-06-21] MEDS: predniSONE 20 MG TABLET PO SCH (10:04)
[2019-06-21] MEDS: ISOSORBIDE MONONITRATE 30 MG TABLET PO SCH (10:07)
[2019-06-21] MEDS: CETIRIZINE 10 MG TABLET PO SCH (10:08)
[2019-06-21] MEDS: POTASSIUM CHLORIDE 10 MEQ TABLET PO SCH ×2 (10:09→20:57)
[2019-06-21] MEDS: ENOXAPARIN 30 MG/0.3 ML SYRINGE SUBCUT SCH (10:09)
[2019-06-21] MEDS: carvediloL 6.25 MG TABLET PO SCH ×2 (10:10→16:35)
[2019-06-21] MEDS: AMIODARONE 200 MG TABLET PO SCH ×2 (10:11→20:56)
[2019-06-21] MEDS: CILOSTAZOL 50 MG TABLET PO SCH ×2 (10:11→20:57)
[2019-06-21] MEDS: FENOFIBRATE 145 MG TABLET PO SCH (10:11)
[2019-06-21] MEDS: CLOPIDOGREL 75 MG TABLET PO SCH (10:11)
[2019-06-21] MEDS: ASPIRIN CHEW 81 MG TABLET PO SCH (10:11)
[2019-06-21] MEDS: INSULIN GLARGINE 100 UNIT/ML SUBCUT SCH (20:56)
[2019-06-21] MEDS: ATORVASTATIN 80 MG TABLET PO SCH (20:56)
[2019-06-21] MEDS: ACETAMINOPHEN 325 MG TABLET PO PRN (20:57)
[2019-06-22] MEDS: LEVALBUTEROL 0.63 MG/3 ML NEB RESP TX SCH ×4 (00:10→23:07)
[2019-06-22] MEDS: IPRATROPIUM 500 MCG/2.5 ML NEB RESP TX SCH ×4 (00:10→23:07)
[2019-06-22 05:22] LABS: Basophils % 0.1 % (0.0-0.8); Eosinophils % 0.1 % (0.00-10.9); Hematocrit 29.8 VOL% (42.0-52.0); Hemoglobin 9.5 GM/DL (14.0-18.0); Immature Granulocytes % 0.5 %; Immature Granulocytes Absolute 0.08 #; Lymphocytes # 0.5 10*3/uL (1.4-4.0); Lymphocytes % 3.4 % (21.2-54.2); Mean Corpuscular HGB Conc 31.9 GM/DL (32-36); Mean Corpuscular Volume 84.9 FL (87-102); Mean Platelet Volume 12.9 FL (9.6-12.0); Monocytes % 5.6 % (1.7-12.7); Neutrophils % 90.3 % (38.7-73.9); Platelet Count 239 T/CUMM (130-400); Red Blood Count 3.51 MC/CUMM (3.8-5.5); Red Cell Distribution Width 16.2 % (9.3-17.3); White Blood Count 14.9 T/CUMM (4-12)
[2019-06-22 05:49] LABS: Hypochromasia 1+; Lymphocytes 7 % (20-55); Platelet Estimate Adequate; Segmented Neutrophils 89 % (50-85); Total Cells Counted 100
[2019-06-22 05:50] LABS: Microcytosis 1+; Ovalocytes Slight
[2019-06-22 05:55] LABS: Calcium 9.6 MG/DL (8.5-10.1); Osmolality,Calculated 294.7 MOS/KG (273-304)
[2019-06-22] MEDS: SODIUM CHLORIDE 3% 4 ML NEB RESP TX SCH ×3 (07:40→19:17)
[2019-06-22] MEDS: INSULIN REGULAR 100 UNIT/ML SUBCUT SCH ×4 (07:58→21:27)
[2019-06-22] MEDS: FUROSEMIDE 40 MG/4 ML VIAL IV SCH ×2 (09:05→17:42)
[2019-06-22] MEDS: CILOSTAZOL 50 MG TABLET PO SCH ×2 (09:06→21:23)
[2019-06-22] MEDS: ENOXAPARIN 30 MG/0.3 ML SYRINGE SUBCUT SCH (09:06)
[2019-06-22] MEDS: metOLazone 2.5 MG TABLET PO SCH (09:06)
[2019-06-22] MEDS: CETIRIZINE 10 MG TABLET PO SCH (09:06)
[2019-06-22] MEDS: ISOSORBIDE MONONITRATE 30 MG TABLET PO SCH (09:06)
[2019-06-22] MEDS: glipiZIDE 10 MG TABLET PO SCH ×2 (09:07→16:41)
[2019-06-22] MEDS: CLOPIDOGREL 75 MG TABLET PO SCH (09:07)
[2019-06-22] MEDS: predniSONE 20 MG TABLET PO SCH (09:07)
[2019-06-22] MEDS: AMIODARONE 200 MG TABLET PO SCH ×2 (09:07→21:23)
[2019-06-22] MEDS: FENOFIBRATE 145 MG TABLET PO SCH (09:07)
[2019-06-22] MEDS: POTASSIUM CHLORIDE 10 MEQ TABLET PO SCH ×2 (09:07→21:23)
[2019-06-22] MEDS: ASPIRIN CHEW 81 MG TABLET PO SCH (09:07)
[2019-06-22] MEDS: carvediloL 6.25 MG TABLET PO SCH (09:07)
[2019-06-22] MEDS: ATORVASTATIN 80 MG TABLET PO SCH (21:23)
[2019-06-22] MEDS: INSULIN GLARGINE 100 UNIT/ML SUBCUT SCH (21:25)
[2019-06-23] MEDS ORDERED: OXYMETAZOLINE 0.05% NASAL SPRAY 15 ML BOTTLE BOTH NARES ONE (03:09)
[2019-06-23 04:21] LABS: Basophils % 0.1 % (0.0-0.8); Eosinophils % 0.1 % (0.00-10.9); Hematocrit 27.4 VOL% (42.0-52.0); Hemoglobin 8.8 GM/DL (14.0-18.0); Immature Granulocytes % 0.6 %; Immature Granulocytes Absolute 0.09 #; Lymphocytes # 0.6 10*3/uL (1.4-4.0); Lymphocytes % 3.7 % (21.2-54.2); Mean Corpuscular HGB Conc 32.1 GM/DL (32-36); Mean Corpuscular Volume 83.3 FL (87-102); Mean Platelet Volume 13.2 FL (9.6-12.0); Monocytes % 5.5 % (1.7-12.7); Platelet Count 223 T/CUMM (130-400); Red Blood Count 3.29 MC/CUMM (3.8-5.5); Red Cell Distribution Width 16.2 % (9.3-17.3); White Blood Count 16.2 T/CUMM (4-12)
[2019-06-23 04:22] LABS: INR 0.9; PT Patient Result 10.3 SECS (9.6-12.2)
[2019-06-23 04:33] LABS: Calcium 9.3 MG/DL (8.5-10.1); Osmolality,Calculated 297.8 MOS/KG (273-304)
[2019-06-23 04:43] LABS: Hypochromasia 1+; Lymphocytes 7 % (20-55); Ovalocytes Slight; Platelet Estimate Adequate; Segmented Neutrophils 90 % (50-85); Total Cells Counted 100
[2019-06-23 04:44] LABS: Microcytosis 1+
[2019-06-23] MEDS: IPRATROPIUM 500 MCG/2.5 ML NEB RESP TX SCH ×3 (07:33→22:48)
[2019-06-23] MEDS: LEVALBUTEROL 0.63 MG/3 ML NEB RESP TX SCH ×3 (07:33→22:48)
[2019-06-23] MEDS ORDERED: FUROSEMIDE 40 MG TABLET PO SCH ×2 (08:00→09:00)
[2019-06-23] MEDS ORDERED: SODIUM CHLORIDE 0.9% 500 ML IV ONE (08:07)
[2019-06-23] MEDS: SODIUM CHLORIDE 3% 4 ML NEB RESP TX SCH ×3 (08:47→19:14)
[2019-06-23] MEDS ORDERED: carvediloL 3.125 MG TABLET PO SCH (09:00)
[2019-06-23] MEDS: AMIODARONE 200 MG TABLET PO SCH ×2 (09:30→21:30)
[2019-06-23] MEDS: CLOPIDOGREL 75 MG TABLET PO SCH (09:30)
[2019-06-23] MEDS: glipiZIDE 10 MG TABLET PO SCH ×2 (09:30→16:57)
[2019-06-23] MEDS: FENOFIBRATE 145 MG TABLET PO SCH (09:30)
[2019-06-23] MEDS: CETIRIZINE 10 MG TABLET PO SCH (09:30)
[2019-06-23] MEDS: predniSONE 20 MG TABLET PO SCH (09:31)
[2019-06-23] MEDS: POTASSIUM CHLORIDE 10 MEQ TABLET PO SCH ×2 (09:31→21:31)
[2019-06-23] MEDS: ISOSORBIDE MONONITRATE 30 MG TABLET PO SCH (09:31)
[2019-06-23] MEDS: INSULIN REGULAR 100 UNIT/ML SUBCUT SCH ×4 (09:34→21:41)
[2019-06-23] MEDS: ASPIRIN CHEW 81 MG TABLET PO SCH (09:50)
[2019-06-23] MEDS ORDERED: HEPARIN 5,000 UNIT/1 ML VIAL ONE (10:14)
[2019-06-23] MEDS ORDERED: LIDOCAINE 1%/EPI INJ 20 ML VIAL ONE (10:15)
[2019-06-23] MEDS ORDERED: BUPIVACAINE MPF 0.25% 30 ML VIAL ONE (10:15)
[2019-06-23] MEDS: ENOXAPARIN 30 MG/0.3 ML SYRINGE SUBCUT SCH (12:32)
[2019-06-23] MEDS: CILOSTAZOL 50 MG TABLET PO SCH ×2 (12:32→21:45)
[2019-06-23] MEDS: CEFEPIME 1,000 MG in SODIUM CHLORIDE 0.9% 100 ML IV SCH ×2 (12:32→21:32)
[2019-06-23] MEDS: dilTIAZem Drip 125 MG/125 ML PREMIX IV SCH (15:46)
[2019-06-23] MEDS: MIDODRINE 2.5 MG TABLET PO SCH ×2 (16:57→21:31)
[2019-06-23] MEDS: ATORVASTATIN 80 MG TABLET PO SCH (21:31)
[2019-06-23] MEDS: INSULIN GLARGINE 100 UNIT/ML SUBCUT SCH (21:39)
[2019-06-24 06:04] LABS: Eosinophils # 0.1 10*3/uL (0.0-0.87); Eosinophils % 0.4 % (0.00-10.9); Hematocrit 24.7 VOL% (42.0-52.0); Hemoglobin 7.7 GM/DL (14.0-18.0); Immature Granulocytes % 0.4 %; Immature Granulocytes Absolute 0.05 #; Lymphocytes # 0.7 10*3/uL (1.4-4.0); Lymphocytes % 5.5 % (21.2-54.2); Mean Corpuscular HGB Conc 31.2 GM/DL (32-36); Mean Corpuscular Volume 85.2 FL (87-102); Mean Platelet Volume 12.5 FL (9.6-12.0); Monocytes % 6.3 % (1.7-12.7); Neutrophils % 87.4 % (38.7-73.9); Platelet Count 212 T/CUMM (130-400); Red Cell Distribution Width 16.7 % (9.3-17.3); White Blood Count 12.8 T/CUMM (4-12)
[2019-06-24 06:49] LABS: Calcium 8.9 MG/DL (8.5-10.1); Osmolality,Calculated 294.5 MOS/KG (273-304)
[2019-06-24] MEDS: SODIUM CHLORIDE 3% 4 ML NEB RESP TX SCH ×3 (07:28→19:34)
[2019-06-24] MEDS: LEVALBUTEROL 0.63 MG/3 ML NEB RESP TX SCH ×2 (07:28→15:00)
[2019-06-24] MEDS: IPRATROPIUM 500 MCG/2.5 ML NEB RESP TX SCH ×2 (07:28→15:00)
[2019-06-24] MEDS ORDERED: FUROSEMIDE 20 MG/2 ML VIAL IV PRN (08:01)
[2019-06-24] MEDS ORDERED: SODIUM CHLORIDE 0.9% 1,000 ML IV PRN (08:01)
[2019-06-24] MEDS: dilTIAZem Drip 125 MG/125 ML PREMIX IV SCH (09:41)
[2019-06-24] MEDS: ENOXAPARIN 30 MG/0.3 ML SYRINGE SUBCUT SCH (09:42)
[2019-06-24] MEDS: CEFEPIME 1,000 MG in SODIUM CHLORIDE 0.9% 100 ML IV SCH ×2 (09:42→22:43)
[2019-06-24] MEDS: INSULIN REGULAR 100 UNIT/ML SUBCUT SCH ×4 (09:43→20:55)
[2019-06-24] MEDS: predniSONE 20 MG TABLET PO SCH (09:44)
[2019-06-24] MEDS: ISOSORBIDE MONONITRATE 30 MG TABLET PO SCH (09:44)
[2019-06-24] MEDS: MIDODRINE 2.5 MG TABLET PO SCH ×3 (09:44→20:52)
[2019-06-24] MEDS: CLOPIDOGREL 75 MG TABLET PO SCH (09:44)
[2019-06-24] MEDS: glipiZIDE 10 MG TABLET PO SCH ×2 (09:44→18:00)
[2019-06-24] MEDS: POTASSIUM CHLORIDE 10 MEQ TABLET PO SCH ×2 (09:45→20:52)
[2019-06-24] MEDS: AMIODARONE 200 MG TABLET PO SCH ×2 (09:45→20:52)
[2019-06-24] MEDS: CETIRIZINE 10 MG TABLET PO SCH (09:45)
[2019-06-24] MEDS: FENOFIBRATE 145 MG TABLET PO SCH (09:45)
[2019-06-24] MEDS: ASPIRIN CHEW 81 MG TABLET PO SCH (09:45)
[2019-06-24] MEDS: CILOSTAZOL 50 MG TABLET PO SCH ×2 (13:48→20:52)
[2019-06-24] MEDS: ATORVASTATIN 80 MG TABLET PO SCH (20:52)
[2019-06-24] MEDS: INSULIN GLARGINE 100 UNIT/ML SUBCUT SCH (20:56)
[2019-06-25] MEDS: LEVALBUTEROL 0.63 MG/3 ML NEB RESP TX SCH ×3 (00:04→14:15)
[2019-06-25] MEDS: IPRATROPIUM 500 MCG/2.5 ML NEB RESP TX SCH ×3 (00:04→14:15)
[2019-06-25] MEDS: SODIUM CHLORIDE 3% 4 ML NEB RESP TX SCH ×3 (07:42→20:42)
[2019-06-25] MEDS: dilTIAZem Drip 125 MG/125 ML PREMIX IV SCH (07:56)
[2019-06-25] MEDS: INSULIN REGULAR 100 UNIT/ML SUBCUT SCH ×4 (07:57→21:24)
[2019-06-25] MEDS: glipiZIDE 10 MG TABLET PO SCH (09:00)
[2019-06-25] MEDS: ENOXAPARIN 30 MG/0.3 ML SYRINGE SUBCUT SCH (09:17)
[2019-06-25] MEDS: POTASSIUM CHLORIDE 10 MEQ TABLET PO SCH ×2 (09:18→21:23)
[2019-06-25] MEDS: CLOPIDOGREL 75 MG TABLET PO SCH (09:18)
[2019-06-25] MEDS: CILOSTAZOL 50 MG TABLET PO SCH ×2 (09:18→21:23)
[2019-06-25] MEDS: CETIRIZINE 10 MG TABLET PO SCH (09:19)
[2019-06-25] MEDS: ASPIRIN CHEW 81 MG TABLET PO SCH (09:19)
[2019-06-25] MEDS: FENOFIBRATE 145 MG TABLET PO SCH (09:19)
[2019-06-25] MEDS: predniSONE 20 MG TABLET PO SCH (09:19)
[2019-06-25] MEDS: ISOSORBIDE MONONITRATE 30 MG TABLET PO SCH (09:19)
[2019-06-25] MEDS: AMIODARONE 200 MG TABLET PO SCH ×2 (09:20→21:23)
[2019-06-25] MEDS: CEFEPIME 1,000 MG in SODIUM CHLORIDE 0.9% 100 ML IV SCH ×2 (09:20→21:25)
[2019-06-25] MEDS: MIDODRINE 2.5 MG TABLET PO SCH (09:28)
[2019-06-25] MEDS ORDERED: FUROSEMIDE 20 MG/2 ML VIAL IV ONE (09:50)
[2019-06-25] MEDS ORDERED: predniSONE 10 MG TABLET PO ONE (10:08)
[2019-06-25 11:01] LABS: Basophils % 0.1 % (0.0-0.8); Eosinophils # 0.1 10*3/uL (0.0-0.87); Eosinophils % 1.1 % (0.00-10.9); Hematocrit 30.1 VOL% (42.0-52.0); Hemoglobin 9.9 GM/DL (14.0-18.0); Immature Granulocytes % 0.8 %; Immature Granulocytes Absolute 0.07 #; Lymphocytes # 0.5 10*3/uL (1.4-4.0); Mean Corpuscular HGB Conc 32.9 GM/DL (32-36); Mean Corpuscular Volume 84.6 FL (87-102); Mean Platelet Volume 12.4 FL (9.6-12.0); Monocytes % 6.5 % (1.7-12.7); Neutrophils % 86.5 % (38.7-73.9); Platelet Count 190 T/CUMM (130-400); Red Blood Count 3.56 MC/CUMM (3.8-5.5); Red Cell Distribution Width 15.8 % (9.3-17.3); White Blood Count 9.2 T/CUMM (4-12)
[2019-06-25 11:26] LABS: Calcium 9.1 MG/DL (8.5-10.1); Osmolality,Calculated 287.7 MOS/KG (273-304)
[2019-06-25] MEDS: POTASSIUM CHLORIDE 20 MEQ TABLET PO PRN ×3 (11:40→15:34)
[2019-06-25] MEDS: DORNASE ALFA 2.5 MG/2.5 ML VIAL RESP TX SCH ×2 (13:00→20:42)
[2019-06-25] MEDS ORDERED: INSULIN GLARGINE 100 UNIT/ML SUBCUT SCH (16:08)
[2019-06-25] MEDS: ATORVASTATIN 80 MG TABLET PO SCH (21:23)
[2019-06-26] MEDS: IPRATROPIUM 500 MCG/2.5 ML NEB RESP TX SCH ×3 (00:29→14:13)
[2019-06-26] MEDS: LEVALBUTEROL 0.63 MG/3 ML NEB RESP TX SCH ×3 (00:29→14:13)
[2019-06-26 05:00] LABS: Eosinophils # 0.1 10*3/uL (0.0-0.87); Eosinophils % 0.6 % (0.00-10.9); Hematocrit 30.6 VOL% (42.0-52.0); Hemoglobin 9.9 GM/DL (14.0-18.0); Immature Granulocytes % 0.5 %; Immature Granulocytes Absolute 0.04 #; Lymphocytes # 0.5 10*3/uL (1.4-4.0); Lymphocytes % 5.7 % (21.2-54.2); Mean Corpuscular HGB Conc 32.4 GM/DL (32-36); Mean Corpuscular Volume 84.1 FL (87-102); Mean Platelet Volume 12.5 FL (9.6-12.0); Monocytes % 7.9 % (1.7-12.7); Neutrophils % 85.3 % (38.7-73.9); Platelet Count 187 T/CUMM (130-400); Red Blood Count 3.64 MC/CUMM (3.8-5.5); Red Cell Distribution Width 15.7 % (9.3-17.3); White Blood Count 8.5 T/CUMM (4-12)
[2019-06-26 05:21] LABS: Calcium 8.9 MG/DL (8.5-10.1); Osmolality,Calculated 289.8 MOS/KG (273-304)
[2019-06-26] MEDS: SODIUM CHLORIDE 3% 4 ML NEB RESP TX SCH ×2 (07:17→14:13)
[2019-06-26] MEDS: DORNASE ALFA 2.5 MG/2.5 ML VIAL RESP TX SCH (07:17)
[2019-06-26] MEDS: INSULIN REGULAR 100 UNIT/ML SUBCUT SCH ×2 (08:22→14:19)
[2019-06-26 08:41] VITALS: BP 118/57
[2019-06-26] MEDS ORDERED: glipiZIDE 5 MG TABLET PO SCH (09:00)
[2019-06-26] MEDS: AMIODARONE 200 MG TABLET PO SCH (09:33)
[2019-06-26] MEDS: ASPIRIN CHEW 81 MG TABLET PO SCH (09:33)
[2019-06-26] MEDS: POTASSIUM CHLORIDE 10 MEQ TABLET PO SCH (09:33)
[2019-06-26] MEDS: CLOPIDOGREL 75 MG TABLET PO SCH (09:33)
[2019-06-26] MEDS: CETIRIZINE 10 MG TABLET PO SCH (09:34)
[2019-06-26] MEDS: ISOSORBIDE MONONITRATE 30 MG TABLET PO SCH (09:34)
[2019-06-26] MEDS: CILOSTAZOL 50 MG TABLET PO SCH (09:34)
[2019-06-26] MEDS: FENOFIBRATE 145 MG TABLET PO SCH (09:34)
[2019-06-26] MEDS: ENOXAPARIN 30 MG/0.3 ML SYRINGE SUBCUT SCH (09:34)
[2019-06-26] MEDS: CEFEPIME 1,000 MG in SODIUM CHLORIDE 0.9% 100 ML IV SCH (09:37)
== END 2019-06-26 14:20 | disposition home health service (06) | DRG 280 ==
LOC: EDBD → EDUNIT# → N.ED 12:40 → N.EDINP 12:40 → N.TELEN 16:06 → SUATTDRO 06-16 11:23
PROVIDERS: ADMIT Internal Medicine; ATTEND Internal Medicine
PROC: CLCCHCL (ICD-10-PCS; 2019-06-16 11:45)

== ENCOUNTER 2019-10-15 12:41 | Inpatient (IN) ==
[2019-10-15] MEDS ORDERED: MORPHINE 4 MG/1 ML VIAL IV PRN (15:50)
[2019-10-15] MEDS ORDERED: ONDANSETRON 4 MG/2 ML VIAL IV PRN (15:50)
[2019-10-15] MEDS ORDERED: guaiFENesin/DM ER 600-30 MG TABLET PO PRN (15:50)
[2019-10-15] MEDS ORDERED: DOCUSATE SODIUM 100 MG CAPSULE PO PRN (15:50)
[2019-10-15] MEDS ORDERED: ALBUTEROL 2.5 MG/3 ML NEB RESP TX PRN (15:50)
[2019-10-15] MEDS ORDERED: LACTULOSE 20 GM/30 ML UDCUP PO PRN (15:50)
[2019-10-15] MEDS ORDERED: ZALEPLON 5 MG CAPSULE PO PRN (15:50)
[2019-10-15] MEDS ORDERED: ACETAMINOPHEN 325 MG TABLET PO PRN (15:50)
[2019-10-15] MEDS ORDERED: FUROSEMIDE 40 MG/4 ML VIAL IV ONE (15:53)
[2019-10-15] MEDS ORDERED: NITROGLYCERIN SL 0.4 MG TABLET SL PRN (15:55)
[2019-10-15 16:22] LABS: Basophils % 0.3 % (0.0-0.8); Eosinophils # 0.1 10*3/uL (0.0-0.87); Eosinophils % 0.5 % (0.00-10.9); Hematocrit 37.9 VOL% (42.0-52.0); Immature Granulocytes % 1.6 %; Immature Granulocytes Absolute 0.15 #; Lymphocytes # 0.4 10*3/uL (1.4-4.0); Lymphocytes % 4.3 % (21.2-54.2); Mean Corpuscular HGB Conc 31.7 GM/DL (32-36); Mean Platelet Volume 11.7 FL (9.6-12.0); Monocytes % 5.7 % (1.7-12.7); Neutrophils % 87.6 % (38.7-73.9); Platelet Count 324 T/CUMM (130-400); Red Blood Count 4.21 MC/CUMM (3.8-5.5); Red Cell Distribution Width 15.4 % (9.3-17.3); White Blood Count 9.4 T/CUMM (4-12)
[2019-10-15 16:42] LABS: Lymphocytes 5 % (20-55); Segmented Neutrophils 89 % (50-85); Total Cells Counted 100
[2019-10-15 16:43] LABS: Burr Cells Few; Elliptocytes Few; Platelet Estimate Adequate
[2019-10-15 16:50] LABS: Albumin 3.2 G/DL (3.4-5.0); Osmolality,Calculated 301.1 MOS/KG (273-304); Total Protein 7.1 G/DL (6.4-8.3)
[2019-10-15] MEDS: methylPREDNISolone SOD SUC 40 MG/1 ML VIAL IV SCH (16:56)
[2019-10-15] MEDS: cefTRIAXone 1,000 MG in SYRINGE 1 EACH IV SCH (16:56)
[2019-10-15] MEDS: INSULIN LISPRO 100 UNIT/ML SUBCUT SCH ×2 (16:56→21:21)
[2019-10-15 16:57] LABS: Apearance,Urine CLEAR (Clear); Bilirubin,Urine Negative (Negative); Blood, Urine Negative (Negative); Glucose,Urine (UA) Negative (Negative); Hyaline Casts,Urine 16 /LPF (0-3); Ketones,Urine Negative (Negative); Mucus,Urine Occasional /LPF (Occasional); Nitrite,Urine Negative (Negative); Protein,Urine Negative; RBC,Urine <1 /HPF (0-4); Urine Color Yellow (Yellow); Urine Specific Gravity 1.011 (1.001-1.035); Urine Urobilinogen < 2.0 EU/DL (0.2-1.0); WBC,Urine 2 /HPF (0-6)
[2019-10-15] MEDS ORDERED: SODIUM POLYSTYRENE SULFATE 15 GM/60 ML BOTTLE PO ONE (16:57)
[2019-10-15] MEDS: BUDESONIDE 0.5 MG/2 ML NEB RESP TX SCH (19:43)
[2019-10-15] MEDS: ALBUTEROL/IPRATROPIUM 3 ML NEB RESP TX SCH (19:43)
[2019-10-15] MEDS: FAMOTIDINE 20 MG/2 ML VIAL IV SCH (21:21)
[2019-10-15] MEDS: AMIODARONE 200 MG TABLET PO SCH (21:21)
[2019-10-15] MEDS: DOXYCYCLINE HYCLATE 100 MG CAPSULE PO SCH (21:21)
[2019-10-15] MEDS: ATORVASTATIN 80 MG TABLET PO SCH (21:21)
[2019-10-15 23:25] LABS: Hematocrit 34.7 VOL% (42.0-52.0); Hemoglobin 10.9 GM/DL (14.0-18.0)
[2019-10-16] MEDS: ALBUTEROL/IPRATROPIUM 3 ML NEB RESP TX SCH ×4 (00:56→19:27)
[2019-10-16 04:39] LABS: Basophils # 0.1 10*3/uL (0.0-0.2); Basophils % 0.5 % (0.0-0.8); Eosinophils % 0.1 % (0.00-10.9); Hematocrit 33.1 VOL% (42.0-52.0); Hemoglobin 10.6 GM/DL (14.0-18.0); Immature Granulocytes % 1.3 %; Immature Granulocytes Absolute 0.12 #; Lymphocytes # 0.3 10*3/uL (1.4-4.0); Lymphocytes % 2.6 % (21.2-54.2); Mean Corpuscular Volume 88.7 FL (87-102); Mean Platelet Volume 11.5 FL (9.6-12.0); Monocytes % 3.2 % (1.7-12.7); Neutrophils % 92.3 % (38.7-73.9); Platelet Count 315 T/CUMM (130-400); Red Blood Count 3.73 MC/CUMM (3.8-5.5); Red Cell Distribution Width 15.3 % (9.3-17.3); White Blood Count 9.5 T/CUMM (4-12)
[2019-10-16] MEDS: methylPREDNISolone SOD SUC 40 MG/1 ML VIAL IV SCH (04:54)
[2019-10-16 05:06] LABS: Eosinophils 3 % (0-10); Hypochromasia 1+; Lymphocytes 3 % (20-55); Platelet Estimate Adequate; Segmented Neutrophils 89 % (50-85); Total Cells Counted 100
[2019-10-16 05:15] LABS: Albumin 2.8 G/DL (3.4-5.0); Bilirubin,Total 1.2 MG/DL (0.2-1.0); Calcium 9.4 MG/DL (8.5-10.1); Osmolality,Calculated 296.5 MOS/KG (273-304); Total Protein 6.8 G/DL (6.4-8.3)
[2019-10-16] MEDS: BUDESONIDE 0.5 MG/2 ML NEB RESP TX SCH ×2 (07:15→19:27)
[2019-10-16] MEDS: INSULIN LISPRO 100 UNIT/ML SUBCUT SCH ×4 (08:30→21:20)
[2019-10-16] MEDS: FAMOTIDINE 20 MG/2 ML VIAL IV SCH (08:31)
[2019-10-16] MEDS: DOXYCYCLINE HYCLATE 100 MG CAPSULE PO SCH ×2 (08:32→21:20)
[2019-10-16] MEDS: FENOFIBRATE 145 MG TABLET PO SCH (08:32)
[2019-10-16] MEDS: CLOPIDOGREL 75 MG TABLET PO SCH (08:32)
[2019-10-16] MEDS: ISOSORBIDE MONONITRATE 30 MG TABLET PO SCH (08:32)
[2019-10-16] MEDS: AMIODARONE 200 MG TABLET PO SCH ×2 (08:32→21:20)
[2019-10-16] MEDS: FERROUS GLUCONATE 324 MG TABLET PO SCH (08:32)
[2019-10-16] MEDS: glipiZIDE 10 MG TABLET PO SCH (08:32)
[2019-10-16] MEDS ORDERED: FUROSEMIDE 40 MG/4 ML VIAL IV SCH (16:00)
[2019-10-16] MEDS: FUROSEMIDE 40 MG/4 ML VIAL IV SCH (17:23)
[2019-10-16] MEDS: cefTRIAXone 1,000 MG in SYRINGE 1 EACH IV SCH (17:23)
[2019-10-16] MEDS: FAMOTIDINE 20 MG TABLET PO SCH (21:20)
[2019-10-16] MEDS: ATORVASTATIN 80 MG TABLET PO SCH (21:20)
[2019-10-17] MEDS: ALBUTEROL/IPRATROPIUM 3 ML NEB RESP TX SCH ×4 (00:12→19:45)
[2019-10-17 05:40] LABS: Basophils # 0.1 10*3/uL (0.0-0.2); Basophils % 0.5 % (0.0-0.8); Eosinophils # 0.2 10*3/uL (0.0-0.87); Eosinophils % 1.5 % (0.00-10.9); Hematocrit 31.3 VOL% (42.0-52.0); Hemoglobin 10.2 GM/DL (14.0-18.0); Immature Granulocytes % 1.3 %; Immature Granulocytes Absolute 0.15 #; Lymphocytes # 0.4 10*3/uL (1.4-4.0); Lymphocytes % 3.7 % (21.2-54.2); Mean Corpuscular HGB Conc 32.6 GM/DL (32-36); Mean Corpuscular Volume 87.9 FL (87-102); Mean Platelet Volume 11.5 FL (9.6-12.0); Monocytes % 6.7 % (1.7-12.7); Neutrophils % 86.3 % (38.7-73.9); Platelet Count 320 T/CUMM (130-400); Red Blood Count 3.56 MC/CUMM (3.8-5.5); Red Cell Distribution Width 15.3 % (9.3-17.3); White Blood Count 11.3 T/CUMM (4-12)
[2019-10-17 05:59] LABS: Eosinophils 2 % (0-10); Hypochromasia 1+; Lymphocytes 3 % (20-55); Ovalocytes Slight; Platelet Estimate Adequate; Segmented Neutrophils 88 % (50-85); Total Cells Counted 100
[2019-10-17 06:03] LABS: Albumin 2.8 G/DL (3.4-5.0); Bilirubin,Total 1.3 MG/DL (0.2-1.0); Calcium 8.8 MG/DL (8.5-10.1); Osmolality,Calculated 299.1 MOS/KG (273-304); Total Protein 6.3 G/DL (6.4-8.3)
[2019-10-17] MEDS: BUDESONIDE 0.5 MG/2 ML NEB RESP TX SCH ×2 (07:44→19:45)
[2019-10-17] MEDS: INSULIN LISPRO 100 UNIT/ML SUBCUT SCH ×4 (08:00→21:58)
[2019-10-17] MEDS: FAMOTIDINE 20 MG TABLET PO SCH ×2 (09:30→20:17)
[2019-10-17] MEDS: ISOSORBIDE MONONITRATE 30 MG TABLET PO SCH (09:43)
[2019-10-17] MEDS: FERROUS GLUCONATE 324 MG TABLET PO SCH (09:43)
[2019-10-17] MEDS: FENOFIBRATE 145 MG TABLET PO SCH (09:44)
[2019-10-17] MEDS: glipiZIDE 10 MG TABLET PO SCH (09:44)
[2019-10-17] MEDS: AMIODARONE 200 MG TABLET PO SCH ×2 (09:44→20:16)
[2019-10-17] MEDS: CLOPIDOGREL 75 MG TABLET PO SCH (09:44)
[2019-10-17] MEDS: FUROSEMIDE 40 MG/4 ML VIAL IV SCH ×2 (09:44→16:31)
[2019-10-17] MEDS: DOXYCYCLINE HYCLATE 100 MG CAPSULE PO SCH ×2 (09:44→20:17)
[2019-10-17] MEDS: predniSONE 20 MG TABLET PO SCH (09:44)
[2019-10-17] MEDS: cefTRIAXone 1,000 MG in SYRINGE 1 EACH IV SCH (16:34)
[2019-10-17] MEDS: ATORVASTATIN 80 MG TABLET PO SCH (20:17)
[2019-10-18] MEDS: ALBUTEROL/IPRATROPIUM 3 ML NEB RESP TX SCH ×4 (01:15→19:40)
[2019-10-18] MEDS: BUDESONIDE 0.5 MG/2 ML NEB RESP TX SCH ×2 (07:36→19:40)
[2019-10-18] MEDS: INSULIN LISPRO 100 UNIT/ML SUBCUT SCH ×4 (09:17→21:19)
[2019-10-18] MEDS: FUROSEMIDE 40 MG/4 ML VIAL IV SCH ×2 (09:22→15:18)
[2019-10-18] MEDS: FENOFIBRATE 145 MG TABLET PO SCH (09:23)
[2019-10-18] MEDS: FAMOTIDINE 20 MG TABLET PO SCH ×2 (09:23→21:20)
[2019-10-18] MEDS: CLOPIDOGREL 75 MG TABLET PO SCH (09:23)
[2019-10-18] MEDS: ISOSORBIDE MONONITRATE 30 MG TABLET PO SCH (09:23)
[2019-10-18] MEDS: AMIODARONE 200 MG TABLET PO SCH ×2 (09:23→21:20)
[2019-10-18] MEDS: FERROUS GLUCONATE 324 MG TABLET PO SCH (09:23)
[2019-10-18] MEDS: predniSONE 20 MG TABLET PO SCH ×2 (09:23→21:20)
[2019-10-18] MEDS: DOXYCYCLINE HYCLATE 100 MG CAPSULE PO SCH ×2 (09:23→21:20)
[2019-10-18] MEDS: glipiZIDE 10 MG TABLET PO SCH (09:23)
[2019-10-18 11:09] LABS: Basophils % 0.2 % (0.0-0.8); Eosinophils # 0.1 10*3/uL (0.0-0.87); Eosinophils % 0.9 % (0.00-10.9); Hematocrit 33.4 VOL% (42.0-52.0); Hemoglobin 10.7 GM/DL (14.0-18.0); Immature Granulocytes Absolute 0.11 #; Lymphocytes # 0.5 10*3/uL (1.4-4.0); Lymphocytes % 3.9 % (21.2-54.2); Mean Corpuscular Volume 87.7 FL (87-102); Mean Platelet Volume 11.2 FL (9.6-12.0); Monocytes % 5.9 % (1.7-12.7); Neutrophils % 88.1 % (38.7-73.9); Platelet Count 380 T/CUMM (130-400); Red Blood Count 3.81 MC/CUMM (3.8-5.5); Red Cell Distribution Width 15.2 % (9.3-17.3); White Blood Count 11.5 T/CUMM (4-12)
[2019-10-18 11:26] LABS: Calcium 8.9 MG/DL (8.5-10.1); Osmolality,Calculated 299.5 MOS/KG (273-304)
[2019-10-18 11:30] LABS: Eosinophils 1 % (0-10); Hypochromasia 1+; Lymphocytes 6 % (20-55); Microcytosis Slight; Platelet Estimate Normal; Segmented Neutrophils 91 % (50-85); Total Cells Counted 100
[2019-10-18] MEDS: CEFEPIME 1,000 MG in SODIUM CHLORIDE 0.9% 100 ML IV SCH (15:22)
[2019-10-18] MEDS: ATORVASTATIN 80 MG TABLET PO SCH (21:20)
[2019-10-19] MEDS: ALBUTEROL/IPRATROPIUM 3 ML NEB RESP TX SCH ×5 (00:53→19:40)
[2019-10-19] MEDS: BUDESONIDE 0.5 MG/2 ML NEB RESP TX SCH ×2 (07:44→19:40)
[2019-10-19] MEDS ORDERED: predniSONE 10 MG TABLET ONE (08:20)
[2019-10-19] MEDS: INSULIN LISPRO 100 UNIT/ML SUBCUT SCH ×4 (08:26→21:35)
[2019-10-19] MEDS: FUROSEMIDE 40 MG/4 ML VIAL IV SCH ×2 (08:27→16:12)
[2019-10-19] MEDS: glipiZIDE 10 MG TABLET PO SCH (08:27)
[2019-10-19] MEDS: FENOFIBRATE 145 MG TABLET PO SCH (08:28)
[2019-10-19] MEDS: FAMOTIDINE 20 MG TABLET PO SCH ×2 (08:28→21:31)
[2019-10-19] MEDS: DOXYCYCLINE HYCLATE 100 MG CAPSULE PO SCH ×2 (08:28→21:31)
[2019-10-19] MEDS: FERROUS GLUCONATE 324 MG TABLET PO SCH (08:28)
[2019-10-19] MEDS: ISOSORBIDE MONONITRATE 30 MG TABLET PO SCH (08:28)
[2019-10-19] MEDS: CLOPIDOGREL 75 MG TABLET PO SCH (08:28)
[2019-10-19] MEDS: AMIODARONE 200 MG TABLET PO SCH ×2 (08:28→21:31)
[2019-10-19] MEDS: predniSONE 20 MG TABLET PO SCH ×2 (08:28→21:31)
[2019-10-19] MEDS: CEFEPIME 1,000 MG in SODIUM CHLORIDE 0.9% 100 ML IV SCH (16:11)
[2019-10-19] MEDS: ATORVASTATIN 80 MG TABLET PO SCH (21:31)
[2019-10-20] MEDS: ALBUTEROL/IPRATROPIUM 3 ML NEB RESP TX SCH ×3 (00:21→13:22)
[2019-10-20 05:47] LABS: Basophils % 0.1 % (0.0-0.8); Hematocrit 33.8 VOL% (42.0-52.0); Hemoglobin 10.8 GM/DL (14.0-18.0); Immature Granulocytes % 1.5 %; Immature Granulocytes Absolute 0.16 #; Lymphocytes # 0.3 10*3/uL (1.4-4.0); Lymphocytes % 2.4 % (21.2-54.2); Mean Corpuscular Volume 88.5 FL (87-102); Monocytes % 2.9 % (1.7-12.7); Neutrophils % 93.1 % (38.7-73.9); Platelet Count 387 T/CUMM (130-400); Red Blood Count 3.82 MC/CUMM (3.8-5.5); Red Cell Distribution Width 15.1 % (9.3-17.3); White Blood Count 10.6 T/CUMM (4-12)
[2019-10-20 06:00] LABS: Calcium 9.3 MG/DL (8.5-10.1)
[2019-10-20 06:18] LABS: Hypochromasia 1+; Lymphocytes 2 % (20-55); Microcytosis Slight; Segmented Neutrophils 94 % (50-85); Total Cells Counted 100
[2019-10-20 06:19] LABS: Platelet Estimate Normal; Target Cells Slight
[2019-10-20] MEDS: BUDESONIDE 0.5 MG/2 ML NEB RESP TX SCH (08:11)
[2019-10-20] MEDS: INSULIN LISPRO 100 UNIT/ML SUBCUT SCH ×2 (09:19→11:57)
[2019-10-20] MEDS: predniSONE 20 MG TABLET PO SCH (09:21)
[2019-10-20] MEDS: AMIODARONE 200 MG TABLET PO SCH (09:21)
[2019-10-20] MEDS: glipiZIDE 10 MG TABLET PO SCH (09:21)
[2019-10-20] MEDS: FAMOTIDINE 20 MG TABLET PO SCH (09:21)
[2019-10-20] MEDS: ISOSORBIDE MONONITRATE 30 MG TABLET PO SCH (09:21)
[2019-10-20] MEDS: FENOFIBRATE 145 MG TABLET PO SCH (09:21)
[2019-10-20] MEDS: DOXYCYCLINE HYCLATE 100 MG CAPSULE PO SCH (09:21)
[2019-10-20] MEDS: FERROUS GLUCONATE 324 MG TABLET PO SCH (09:21)
[2019-10-20] MEDS: CLOPIDOGREL 75 MG TABLET PO SCH (09:21)
[2019-10-20] MEDS: FUROSEMIDE 40 MG/4 ML VIAL IV SCH (09:21)
[2019-10-20 12:26] VITALS: BP 115/62
[2019-10-21] MEDS ORDERED: FAMOTIDINE 20 MG TABLET PO SCH (09:00)
== END 2019-10-20 14:50 | disposition home health service (06) | DRG 291 ==
LOC: SUATTDRO 15:06 → SUPCPDRO 15:06 → N.CC 15:06 → N.5E 10-16 13:05
PROVIDERS: ADMIT Internal Medicine; ATTEND Family Medicine